=== PATIENT | male | born 1970 | race Caucasian/White ===

== ENCOUNTER 2017-06-16 22:29 | Emergency (ER) | payer OTHER ==
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
== END 2017-06-16 23:19 | disposition home or self-care (01) ==
LOC: JD.ED 22:29
DX: S49.92XA Unspecified injury of left shoulder and upper arm, initial encounter (principal); V53.5XXA Driver of pick-up truck or van injured in collision with car, pick-up truck or van in traffic accident, initial encounter; Y92.410 Unspecified street and highway as the place of occurrence of the external cause
CPT/HCPCS: 99283; 99284